=== PATIENT | female | born 1990 | race Caucasian/White ===

== ENCOUNTER 2023-03-23 09:54 | Inpatient (IN) ==
[2023-03-23] MEDS ORDERED: Promethazine INJ(RESTRICTED) 25 MG/ML 1 ml VIAL IV PRN (10:36)
[2023-03-23] MEDS ORDERED: Lactated Ringers 1000 ml BAG 1,000 ML IV ONE ×2 (10:36→15:18)
[2023-03-23] MEDS ORDERED: Buffered Lidocaine 1% SYRIN 1 ml INTRADERM ONE (10:36)
[2023-03-23] MEDS ORDERED: Nalbuphine 10 MG/ML 1 ML VIAL IV PRN (10:36)
[2023-03-23] MEDS ORDERED: Oxytocin in LR 20,000 MILLI.UNIT/1,000 ML BAG IV SCH ×2 (10:40→18:10)
[2023-03-23] MEDS ORDERED: Lactated Ringers 1000 ml BAG 1,000 ML IV SCH ×3 (11:00→19:00)
[2023-03-23] MEDS: Vancomycin 1,000 MG in NS 0.9% 250 ml 250 ML IVPB SCH ×2 (11:45→23:19)
[2023-03-23 12:03] LABS: ABS Basophils 0.1 10^3/uL (0.0-0.1); ABS Eosinophils 0.3 10^3/uL (0.0-0.5); ABS Lymphocytes 2.3 10^3/uL (1.0-4.8); ABS Monocytes 0.5 10^3/uL (0.0-0.9); ABS Neutrophils 10.2 10^3/uL (1.5-7.6); ABS Nucleated RBC 0.01 10^3/ul; Hematocrit 35.3 % (35-45); Hemoglobin 11.6 g/dL (11.5-14.3); Lymphocyte % 17.2 %; Mean Corpuscular Hemoglobin 25.7 pg (27-33); Mean Corpuscular Hgb Conc 32.9 g/dL (31-36); Mean Corpuscular Volume 78.2 fL (80-97); Mean Platelet Volume 7.9 fL (7.5-11.2); Platelet Count 406 10^3/uL (150-450); Red Blood Count 4.51 10^6/uL (3.63-4.92); Red Cell Distribution Width 17.2 % (12-17); White Blood Count 13.4 10^3/uL (3.8-11.8)
[2023-03-23 12:22] LABS: Urine Benzodiazepine Screen None Detected (None Detect); Urine Cannabinoids Screen None Detected (None Detect); Urine Opiates Screen None Detected (None Detect)
[2023-03-23] MEDS ORDERED: OBEPIDURAL (200 ML) 200 ML EPIDURAL ONE (14:42)
[2023-03-23] MEDS ORDERED: Lidocaine 1% w EPI 1:200,000 SDV 10 ML VIAL ONE (14:42)
[2023-03-23] MEDS ORDERED: Lidocaine 1% MPF 5 ML VIAL ONE (14:59)
[2023-03-23] MEDS ORDERED: Sodium Citrate/Citric Acid LIQ 15 ML UDC PO PRN (15:18)
[2023-03-23] MEDS ORDERED: Phenylephrine 40 mcg/mL 10mL (400mcg) SYRINGE IV PUSH PRN ×2 (15:18)
[2023-03-23] MEDS ORDERED: OBEPIDURAL (200 ML) 200 ML EPIDURAL SCH (16:00)
[2023-03-23 16:25] LABS: Urine Appearance Cloudy; Urine Bilirubin Negative (Negative); Urine Blood 1+ (Negative); Urine Color Yellow; Urine Glucose Negative (Negative); Urine Ketones Negative (Negative); Urine Nitrite Negative (Negative); Urine Protein Negative (Negative); Urine Specific Gravity 1.021 (1.002-1.030); Urine Urobilinogen Negative (Negative)
[2023-03-23 16:45] LABS: Urine Bacteria 1+ (Absent); Urine Red Blood Cell 2+(6-10/hpf) (Absent); Urine Squamous Epithelial Cell Present (Absent); Urine White Blood Cell Trace(0-5/hpf) (Absent)
[2023-03-23] MEDS ORDERED: Dibucaine 1% OINT 28.35 GM TUBE PR PRN (18:08)
[2023-03-23] MEDS ORDERED: Witch Hazel PAD JAR TOPICAL PRN (18:08)
[2023-03-23] MEDS ORDERED: Glycerin ADULT 2.4 gm SUPP PR PRN (18:08)
[2023-03-24 06:52] LABS: ABS Eosinophils 0.3 10^3/uL (0.0-0.5); ABS Lymphocytes 2.7 10^3/uL (1.0-4.8); ABS Monocytes 0.9 10^3/uL (0.0-0.9); ABS Neutrophils 10.6 10^3/uL (1.5-7.6); Hematocrit 31.7 % (35-45); Hemoglobin 10.4 g/dL (11.5-14.3); Lymphocyte % 18.4 %; Mean Corpuscular Hemoglobin 25.9 pg (27-33); Mean Corpuscular Volume 78.5 fL (80-97); Mean Platelet Volume 7.4 fL (7.5-11.2); Platelet Count 346 10^3/uL (150-450); Red Blood Count 4.03 10^6/uL (3.63-4.92); Red Cell Distribution Width 17.2 % (12-17); White Blood Count 14.5 10^3/uL (3.8-11.8)
[2023-03-24] MEDS: Vancomycin 1,000 MG in NS 0.9% 250 ml 250 ML IVPB SCH (21:24)
[2023-03-25 07:50] VITALS: BP 109/85
== END 2023-03-25 12:11 | disposition home or self-care (01) | DRG 560 ==
LOC: MCHOBOUT 09:54 → MCHOB 11:17
PROVIDERS: ADMIT Obstetrics & Gynecology; ATTEND Obstetrics & Gynecology

== ENCOUNTER 2024-03-07 18:41 | Inpatient (IN) ==
[2024-03-07] MEDS ORDERED: Lidocaine 1% VIAL 10 MG/ML 30 ML VIAL INJ PRN (19:35)
[2024-03-07] MEDS: Lactated Ringers 1000 ml BAG 1,000 ML IV ONE (20:15)
[2024-03-07 20:19] LABS: ABS Basophils 0.1 10^3/uL (0.0-0.1); ABS Eosinophils 0.2 10^3/uL (0.0-0.5); ABS Lymphocytes 2.9 10^3/uL (1.0-4.8); ABS Monocytes 0.7 10^3/uL (0.0-0.9); ABS Neutrophils 9.8 10^3/uL (1.5-7.6); ABS Nucleated RBC 0.01 10^3/ul; Eosinophil % 1.8 %; Lymphocyte % 21.2 %; Mean Corpuscular Hemoglobin 25.3 pg (27-33); Mean Corpuscular Hgb Conc 32.4 g/dL (31-36); Mean Corpuscular Volume 78.2 fL (80-97); Mean Platelet Volume 8.3 fL (7.5-11.2); Platelet Count 340 10^3/uL (150-450); Red Cell Distribution Width 17.5 % (12-17)
[2024-03-07 20:37] LABS: Uric Acid 6.1 mg/dL (2.3-6.6)
[2024-03-07 20:41] LABS: Urine Creatinine Concentration 299.07 mg/dL (20.00-320.00)
[2024-03-07] MEDS: Betamethasone 6 mg/ml 5 ml VIAL IM SCH (20:48)
[2024-03-07 20:49] LABS: Hemoglobin 11.7 g/dL (11.5-14.3); White Blood Count 13.7 10^3/uL (3.8-11.8)
[2024-03-07 20:58] LABS: Urine Benzodiazepine Screen None Detected (None Detect); Urine Cannabinoids Screen None Detected (None Detect); Urine Opiates Screen None Detected (None Detect)
[2024-03-07 23:16] LABS: Urine TP Creat Ratio 2.16 mg/mg
[2024-03-08 10:23] LABS: Creatinine, Serum 0.81 mg/dL (0.51-0.95); eGFR CKD-EPI 98.2 (>60)
[2024-03-08] MEDS: Ondansetron ODT 4 mg TAB 4 MG TAB PO PRN (11:22)
[2024-03-08 12:08] LABS: ABS Lymphocytes 1.4 10^3/uL (1.0-4.8); ABS Monocytes 0.5 10^3/uL (0.0-0.9); ABS Neutrophils 10.3 10^3/uL (1.5-7.6); Hematocrit 35.6 % (35-45); Hemoglobin 11.6 g/dL (11.5-14.3); Lymphocyte % 11.4 %; Mean Corpuscular Hemoglobin 25.5 pg (27-33); Mean Corpuscular Hgb Conc 32.5 g/dL (31-36); Mean Corpuscular Volume 78.5 fL (80-97); Mean Platelet Volume 8.4 fL (7.5-11.2); Platelet Count 326 10^3/uL (150-450); Red Blood Count 4.54 10^6/uL (3.63-4.92); Red Cell Distribution Width 17.1 % (12-17); White Blood Count 12.1 10^3/uL (3.8-11.8)
[2024-03-08 12:29] LABS: Albumin 3.1 g/dL (3.2-5.2); Calcium 8.6 mg/dL (8.6-10.3); Creatinine, Serum 0.85 mg/dL (0.51-0.95); Globulin 3.2 g/dL (2-4); Potassium 4.2 mmol/L (3.5-5.0); Total Bilirubin 0.3 mg/dL (0.2-1.0); Total Protein 6.3 g/dL (6.4-8.9); eGFR CKD-EPI 92.7 (>60)
[2024-03-08] MEDS: Metoclopramide 5 MG/ML VIAL (10 mg) IV SLOW PU ONE (14:50)
[2024-03-08] MEDS: D5LR 1000 ml BAG 1,000 ML IV SCH (14:55)
[2024-03-08] MEDS ORDERED: Calcium Gluconate 1 GM/10 ML VIAL (in Pyxis) IV PUSH PRN (15:15)
[2024-03-08] MEDS ORDERED: Lidocaine 1% VIAL 10 MG/ML 30 ML VIAL INJ PRN (15:15)
[2024-03-08] MEDS: Magnesium Sulfate OB PREMIX 4 GM/100 ML BAG IV ONE (15:36)
[2024-03-08] MEDS: Magnesium Sulfate OB PREMIX 40 GM/1,000 ML BAG IVPB SCH (15:56)
[2024-03-08] MEDS: Buffered Lidocaine 1% SYRIN 1 ml INTRADERM ONE (18:58)
[2024-03-08] MEDS: Lactated Ringers 1000 ml BAG 1,000 ML IV SCH (20:11)
[2024-03-08] MEDS: Buffered Lidocaine 1% SYRIN 1 ml ONE (21:02)
[2024-03-08] MEDS: Metoclopramide 5 MG/ML VIAL (10 mg) ONE (23:03)
[2024-03-09] MEDS: Lactated Ringers 1000 ml BAG 1,000 ML IV SCH (08:00)
[2024-03-09 08:44] LABS: ABS Lymphocytes 1.7 10^3/uL (1.0-4.8); ABS Monocytes 0.3 10^3/uL (0.0-0.9); ABS Nucleated RBC 0.01 10^3/ul; Hematocrit 37.9 % (35-45); Hemoglobin 12.5 g/dL (11.5-14.3); Lymphocyte % 10.2 %; Mean Corpuscular Hemoglobin 25.6 pg (27-33); Mean Corpuscular Volume 77.7 fL (80-97); Mean Platelet Volume 8.2 fL (7.5-11.2); Platelet Count 425 10^3/uL (150-450); Red Blood Count 4.87 10^6/uL (3.63-4.92)
[2024-03-09] MEDS ORDERED: Oxytocin 10 UNITS/ML 1 ML VIAL ONE ×6 (08:47→11:03)
[2024-03-09] MEDS ORDERED: Dexamethasone IV 4 MG/ML VIAL 1 ml VIAL ONE (08:47)
[2024-03-09] MEDS ORDERED: Sodium Citrate/Citric Acid LIQ 15 ML UDC ONE (08:47)
[2024-03-09] MEDS ORDERED: Ondansetron 4 mg VIAL 2 MG/ML 2 ml VIAL ONE (08:47)
[2024-03-09] MEDS ORDERED: Morphine PF AMP (0.5MG/ML) 5 MG/10 ML AMP ONE (08:47)
[2024-03-09 09:03] LABS: Albumin 3.4 g/dL (3.2-5.2); Albumin/Globulin Ratio 0.9 (1-3); Calcium 7.1 mg/dL (8.6-10.3); Creatinine, Serum 0.82 mg/dL (0.51-0.95); Globulin 3.7 g/dL (2-4); Potassium 4.3 mmol/L (3.5-5.0); Total Bilirubin 0.3 mg/dL (0.2-1.0); Total Protein 7.1 g/dL (6.4-8.9); eGFR CKD-EPI 96.8 (>60)
[2024-03-09] MEDS: Clindamycin 900 MG/D5W BAG 900 MG/50 ML BAG IVPB ONE (09:05)
[2024-03-09] MEDS: NS 0.9% IVPB ONE (10:00)
[2024-03-09] MEDS: GENTAMICIN ADULT IVPB ONE (10:00)
[2024-03-09] MEDS ORDERED: Sodium Chloride 0.9% 10 ML ONE (10:12)
[2024-03-09] MEDS ORDERED: Metoclopramide 5 MG/ML VIAL (10 mg) ONE (10:40)
[2024-03-09] MEDS ORDERED: Dibucaine 1% OINT 28.35 GM TUBE PR PRN (11:25)
[2024-03-09] MEDS ORDERED: Glycerin ADULT 2.4 gm SUPP PR PRN (11:25)
[2024-03-09] MEDS ORDERED: Witch Hazel PAD JAR TOPICAL PRN (11:25)
[2024-03-09] MEDS ORDERED: Ondansetron 4 mg VIAL 2 MG/ML 2 ml VIAL IV PRN (11:44)
[2024-03-09] MEDS ORDERED: Naloxone 0.4 mg VIAL 0.4 mg/ml 1 ml VIAL IV PUSH PRN (11:44)
[2024-03-09] MEDS ORDERED: Metoclopramide 5 MG/ML VIAL (10 mg) IV PRN (11:44)
[2024-03-09] MEDS ORDERED: Lactated Ringers 1000 ml BAG 1,000 ML IV SCH (12:00)
[2024-03-09] MEDS: Oxytocin in LR 20,000 MILLI.UNIT/1,000 ML BAG IV SCH (12:15)
[2024-03-09] MEDS ORDERED: Acetaminophen IV 1 GM/100ML 1,000 MG/100 ML BAG IV PRN (12:24)
[2024-03-09] MEDS ORDERED: fentaNYL 100 mcg/2 ml 50 MCG/ML VIAL IV SLOW PU PRN (12:29)
[2024-03-09] MEDS: Acetaminophen IV 1 GM/100ML 1,000 MG/100 ML BAG IV PRN (12:37)
[2024-03-09 13:24] LABS: Urine Appearance Clear; Urine Bilirubin Negative (Negative); Urine Blood Trace (Negative); Urine Color Light-Yellow; Urine Glucose Negative (Negative); Urine Ketones 1+ (Negative); Urine Nitrite Negative (Negative); Urine Protein Trace (Negative); Urine Specific Gravity 1.017 (1.002-1.030); Urine Urobilinogen Negative (Negative); Urine pH 6.5 (5.0-8.0)
[2024-03-10 06:17] LABS: ABS Lymphocytes 2.7 10^3/uL (1.0-4.8); ABS Monocytes 1.1 10^3/uL (0.0-0.9); ABS Neutrophils 14.8 10^3/uL (1.5-7.6); ABS Nucleated RBC 0.01 10^3/ul; Eosinophil % 0.1 %; Hematocrit 32.2 % (35-45); Hemoglobin 10.5 g/dL (11.5-14.3); Lymphocyte % 14.3 %; Mean Corpuscular Hemoglobin 25.5 pg (27-33); Mean Corpuscular Hgb Conc 32.5 g/dL (31-36); Mean Corpuscular Volume 78.3 fL (80-97); Nucleated Red Blood Cells % 0.1 %/100WBC (0.0-0.8); Platelet Count 403 10^3/uL (150-450); Red Blood Count 4.11 10^6/uL (3.63-4.92); Red Cell Distribution Width 17.4 % (12-17); White Blood Count 18.5 10^3/uL (3.8-11.8)
[2024-03-10] MEDS: GENTAMICIN ADULT IVPB ONE (20:33)
[2024-03-10] MEDS: NS 0.9% IVPB ONE (20:33)
[2024-03-12 09:24] VITALS: BP 121/80
== END 2024-03-12 11:35 | disposition home or self-care (01) | DRG 540 ==
LOC: MCHOBOUT 18:41 → MCHOB 19:32
PROVIDERS: ADMIT Obstetrics & Gynecology; ATTEND Obstetrics & Gynecology